=== PATIENT | female | born 1960 | race African-American/Black ===

== ENCOUNTER 2016-11-19 19:41 | Emergency (ER) | payer MEDICAID ==
[~2016-11-19] VITALS: Ht 167.6 cm; Wt 64.0 kg
[~2016-11-19 19:41] MED LIST: CATAPRES; CLONIDINE
[2016-11-19 19:43] VITALS: BP 136/82
[2016-11-19 20:50] LABS: BASOPHILS % 0.8 % (0.0-2.0); CHLORIDE 108 mEq/L (98-107); EOSINOPHILS % 0.4 % (0.0-5.0); HEMATOCRIT. 34.2 % (36.0-48.0); HEMOGLOBIN. 11.5 g/dL (12.0-16.0); MEAN CORPUSCULAR VOLUME 92.1 fL (81.0-99.0); MEAN PLATELET VOLUME 6.4 fl (7.4-10.4); MONOCYTES % 5.1 % (2.0-8.0); NEUTROPHILS % 63.7 % (40.0-76.0); PLATELET 336 x1000/uL (130-400); RED BLOOD CELL COUNT 3.72 mill/uL (4.2-5.4); RED CELL DISTRIBUTION WIDTH 13.7 % (11.6-14.6)
[2016-11-19 20:54] LABS: CARBON DIOXIDE 20 mEq/L (21-32)
[2016-11-19 20:55] LABS: ETHANOL BLOOD < 10 mg/dL
[2016-11-19 21:08] LABS: CARBAMAZEPINE < 0.5 ug/mL (4-12); PHENOBARBITAL < 2.1 ug/mL (15.0-40.0)
[2016-11-19 21:19] LABS: VALPROIC ACID < 3.0 ug/mL (50-100)
== END 2016-11-19 20:47 | disposition left against medical advice (07) ==
LOC: ER 20:15
DX: G40.909 Epilepsy, unspecified, not intractable, without status epilepticus (principal); R41.82 Altered mental status, unspecified; R03.0 Elevated blood-pressure reading, without diagnosis of hypertension; N28.9 Disorder of kidney and ureter, unspecified; D64.9 Anemia, unspecified; Z71.89 Other specified counseling
CPT/HCPCS: 36415; 70450; 80053; 80156; 80165; 80184; 80185; 85025; 99285; G0482

== ENCOUNTER 2017-01-29 22:12 | Emergency (ER) | payer MEDICAID ==
[~2017-01-29] VITALS: Ht 170.2 cm; Wt 66.0 kg
[2017-01-30] MEDS ORDERED: KETOROLAC 60MG/2ML VIAL IM ONE (03:15)
[2017-01-30 03:37] LABS: BASOPHILS % 0.8 % (0.0-2.0); EOSINOPHILS % 1.4 % (0.0-5.0); HEMATOCRIT. 36.5 % (36.0-48.0); HEMOGLOBIN. 12.4 g/dL (12.0-16.0); LYMPHOCYTES % 40.8 % (20.0-50.0); MEAN CORPUSCULAR HEMOGLOBIN 30.8 pg (28.0-32.0); MEAN CORPUSCULAR VOLUME 90.6 fL (81.0-99.0); MEAN PLATELET VOLUME 6.2 fl (7.4-10.4); MONOCYTES % 4.5 % (2.0-8.0); NEUTROPHILS % 52.5 % (40.0-76.0); PLATELET 288 x1000/uL (130-400); RED BLOOD CELL COUNT 4.03 mill/uL (4.2-5.4); RED CELL DISTRIBUTION WIDTH 13.8 % (11.6-14.6)
[2017-01-30 03:55] LABS: CARBON DIOXIDE 29 mEq/L (21-32); CHLORIDE 108 mEq/L (98-107)
[2017-01-30] MEDS ORDERED: HYDROCODONE/ACETAMINOPHEN 5/325MG TABLET PO ONE (05:30)
[2017-01-30 05:35] VITALS: BP 152/82
== END 2017-01-30 06:03 | disposition home or self-care (01) ==
LOC: ER 22:12
DX: L03.317 Cellulitis of buttock (principal); I10 Essential (primary) hypertension; G40.909 Epilepsy, unspecified, not intractable, without status epilepticus; F17.210 Nicotine dependence, cigarettes, uncomplicated; Z90.710 Acquired absence of both cervix and uterus
CPT/HCPCS: 36415; 80053; 85025; 93005; 96372; 99285; J1885

== ENCOUNTER 2017-02-03 11:58 | Emergency (ER) | payer MEDICAID ==
[~2017-02-03] VITALS: Ht 167.6 cm; Wt 64.0 kg
[2017-02-03] MEDS ORDERED: KETOROLAC 60MG/2ML VIAL IM ONE (16:00)
[2017-02-03] MEDS ORDERED: HYDROCODONE/ACETAMINOPHEN 5/325MG TABLET PO ONE (16:00)
[2017-02-03 17:00] VITALS: BP 146/79
[2017-02-03] MEDS ORDERED: CARISOPRODOL 350 MG TABLET PO ONE (17:15)
== END 2017-02-03 18:00 | disposition home or self-care (01) ==
LOC: ER 12:00
DX: M54.31 Sciatica, right side (principal); I10 Essential (primary) hypertension
CPT/HCPCS: 96372; 99283; J1885

== ENCOUNTER → 2019-11-21 | Outpatient (CLI) | payer MEDICAID | END | disposition home or self-care (01) | LOC: LAB 14:43 | PROVIDERS: ATTEND Ophthalmology | DX: Z01.818 Encounter for other preprocedural examination (principal); Z11.59 Encounter for screening for other viral diseases | CPT/HCPCS: C9803; U0003 ==

== ENCOUNTER 2019-11-25 06:39 | Day surgery (SDC) | payer MEDICAID ==
[~2019-11-25] VITALS: Ht 170.2 cm; Wt 63.5 kg
[~2019-11-25 06:39] MED LIST changes: +BALANCED SALT IRRIG SOLN COMB1 500ML OP ONE; +LACTATED RINGERS 1,000 ML IV SCH
[2019-11-25] MEDS ORDERED: HYALURONATE SODIUM 10 MG/ML 0.55ML SYRINGE IO ONE (08:26)
[2019-11-25] MEDS ORDERED: TRYPAN BLUE 0.5 ML DISP.SYRIN IO ONE (08:26)
[2019-11-25] MEDS ORDERED: PHENYLEPHRINE HCL 10% OPHTH DROPS 5ML LEFTEYE SCH (08:30)
[2019-11-25] MEDS ORDERED: CYCLOPENTOLATE HCL 1% OPHTH DROPS 2ML LEFTEYE SCH (08:30)
[2019-11-25] MEDS ORDERED: TROPICAMIDE 1% OPHTH DROPS 15ML LEFTEYE SCH (08:30)
[2019-11-25] MEDS ORDERED: MIDAZOLAM HCL 2 MG/2 ML VIAL ONE (08:47)
[2019-11-25] MEDS ORDERED: FENTANYL CITRATE/PF 50MCG/ML 2ML VIAL ONE (08:47)
[2019-11-25] MEDS ORDERED: PREDNISOLONE ACETATE 1% OPHTH DROPS 5ML ONE (11:50)
[2019-11-25] MEDS ORDERED: CIPROFLOXACIN 0.3% OPHTH SOLN 2.5ML ONE (11:50)
[2019-11-25] MEDS ORDERED: LIDOCAINE HCL/PF 2% 20 MG/ML 10ML VIAL ONE (11:50)
[2019-11-25] MEDS ORDERED: BALANCED SALT IRRIG SOLN 15ML ONE (11:50)
[2019-11-25] MEDS ORDERED: TETRACAINE 0.5% OPHTH DROPS 4ML ONE (11:50)
== END 2019-11-25 10:58 | disposition home or self-care (01) ==
LOC: OR 06:39
PROVIDERS: ATTEND Ophthalmology
DX: H25.22 Age-related cataract, morgagnian type, left eye (principal); I10 Essential (primary) hypertension; N28.9 Disorder of kidney and ureter, unspecified; F17.210 Nicotine dependence, cigarettes, uncomplicated; Z98.891 History of uterine scar from previous surgery; Z98.890 Other specified postprocedural states; Z88.8 Allergy status to other drugs, medicaments and biological substances; Z79.899 Other long term (current) drug therapy; Z90.710 Acquired absence of both cervix and uterus
CPT/HCPCS: 66982; J2250; J3010; J3490; Q9957; V2632